=== PATIENT | female | born 1975 | race Caucasian/White ===

== ENCOUNTER 2017-11-04 19:48 | Emergency (ER) | payer BC ==
[2017-11-04] MEDS ORDERED: DUONEB *Not for PRN Use IH ONE (20:39)
--- NOTE | 2017-11-04 20:45 | Emergency Department Report ---
ED Shortness of Breath HPI - General Chief Complaint: Dyspnea/Respdistress Stated Complaint: CHEST PAIN, ARIEL Time Seen by Provider: 11/04/17 20:31 Source: family Mode of arrival: Ambulatory Limitations: No Limitations - History of Present Illness Initial Comments: Patient is to have a sudden onset of shortness of breath yesterday. She also had right upper quadrant abdominal pain. She denies any chest pain. Denied abdominal pain had resolved currently. She suffers from seasonal allergies. She says she has a plan to get to about doing that tomorrow. MD Complaint: shortness of breath, cough -: Sudden Severity: moderate Pain Scale: 7 Consistency: now resolved Improves With: oxygen Worsens With: nothing Known History Of: other (seasonal allergies) Context: other Treatments Prior to Arrival: none - Related Data Home Oxygen Therapy: No Previous Rx's Medication Instructions Recorded Last Taken Type ALBUTEROL Inhaler [ProAir HFA 2 puff IH QID PRN #1 inhalation 11/05/17 Unknown Rx Inhaler] predniSONE [Deltasone] 40 mg PO QDAY #8 tab 11/05/17 Unknown Rx Allergies Allergy/AdvReac Type Severity Reaction Status Date / Time No Known Allergies Allergy Unverified 11/04/17 20:09 ED Review of Systems ROS: Stated complaint: CHEST PAIN, ARIEL Other details as noted in HPI Comment: All other systems reviewed and negative Constitutional: denies: chills, fever Eyes: denies: vision change ENT: denies: ear pain Respiratory: cough, orthopnea, shortness of breath Cardiovascular: denies: chest pain, palpitations Endocrine: no symptoms reported Gastrointestinal: abdominal pain (RUQ). denies: nausea, vomiting, diarrhea Genitourinary: denies: dysuria, hematuria Musculoskeletal: denies: back pain, joint swelling Skin: denies: rash, lesions Neurological: denies: headache, weakness, numbness, paresthesias, confusion Psychiatric: denies: anxiety, depression Hematological/Lymphatic: denies: easy bleeding, easy bruising ED Past Medical Hx - Past Medical History Previous Medical History?: No - Surgical History Past Surgical History?: No - Social History Smoking Status: Never Smoker Substance Use Type: None - Medications Home Medications: Home Medications Medication Instructions Recorded Confirmed Last Taken Type ALBUTEROL Inhaler [ProAir HFA 2 puff IH QID PRN #1 inhalation 11/05/17 Unknown Rx Inhaler] predniSONE [Deltasone] 40 mg PO QDAY #8 tab 11/05/17 Unknown Rx ED Physical Exam - General Limitations: No Limitations General appearance: alert, in no apparent distress, cachectic - Head Head exam: Present: atraumatic, normocephalic, normal inspection - Eye Eye exam: Present: normal appearance, PERRL, EOMI Pupils: Present: normal accommodation - ENT ENT exam: Present: normal exam, normal orophraynx, mucous membranes moist - Neck Neck exam: Present: normal inspection, full ROM. Absent: tenderness - Respiratory Respiratory exam: Present: respiratory distress, wheezes, rales, rhonchi - Cardiovascular Cardiovascular Exam: Absent: regular rate, normal rhythm, normal heart sounds - GI/Abdominal GI/Abdominal exam: Present: soft, normal bowel sounds. Absent: distended, tenderness, guarding, rebound - Extremities Exam Extremities exam: Present: normal inspection, full ROM, normal capillary refill. Absent: tenderness, pedal edema, joint swelling - Back Exam Back exam: Present: normal inspection, full ROM - Neurological Exam Neurological exam: Present: alert, oriented X3, CN II-XII intact - Psychiatric Psychiatric exam: Present: normal affect, normal mood - Skin Skin exam: Present: warm, dry, intact, normal color. Absent: rash ED Course Vital Signs 11/04/17 11/04/17 11/04/17 20:10 20:18 20:30 Temperature 98.8 F Pulse Rate 67 69 87 Pulse Rate [ Posterior Bilateral Throughout] Pulse Rate [ Posterior Right Middle Lobe] Respiratory 20 19 Rate Respiratory Rate [Posterior Bilateral Throughout] Respiratory Rate [Posterior Right Middle Lobe] Blood Pressure 142/81 133/78 O2 Sat by Pulse 93 96 Oximetry 11/04/17 11/04/17 11/04/17 20:40 20:45 21:00 Temperature Pulse Rate 75 79 Pulse Rate [ Posterior Bilateral Throughout] Pulse Rate [ Posterior Right Middle Lobe] Respiratory 22 25 H 22 Rate Respiratory Rate [Posterior Bilateral Throughout] Respiratory Rate [Posterior Right Middle Lobe] Blood Pressure 133/78 127/87 O2 Sat by Pulse 99 100 100 Oximetry 11/04/17 11/04/17 11/04/17 21:15 21:31 21:45 Temperature Pulse Rate 70 73 79 Pulse Rate [ Posterior Bilateral Throughout] Pulse Rate [ Posterior Right Middle Lobe] Respiratory 28 H 30 H 24 Rate Respiratory Rate [Posterior Bilateral Throughout] Respiratory Rate [Posterior Right Middle Lobe] Blood Pressure 127/87 127/87 127/87 O2 Sat by Pulse 100 99 100 Oximetry 11/04/17 11/04/17 11/04/17 22:01 22:15 22:30 Temperature Pulse Rate 76 81 74 Pulse Rate [ Posterior Bilateral Throughout] Pulse Rate [ Posterior Right Middle Lobe] Respiratory 28 H 25 H 33 H Rate Respiratory Rate [Posterior Bilateral Throughout] Respiratory Rate [Posterior Right Middle Lobe] Blood Pressure 127/87 127/87 127/87 O2 Sat by Pulse 99 97 Oximetry 11/04/17 11/04/17 11/04/17 22:45 22:49 22:58 Temperature Pulse Rate Pulse Rate [ 73 89 Posterior Bilateral Throughout] Pulse Rate [ Posterior Right Middle Lobe] Respiratory Rate Respiratory 22 18 Rate [Posterior Bilateral Throughout] Respiratory Rate [Posterior Right Middle Lobe] Blood Pressure 127/87 O2 Sat by Pulse 90 Oximetry 11/04/17 11/04/17 11/04/17 23:01 23:15 23:17 Temperature Pulse Rate Pulse Rate [ 70 Posterior Bilateral Throughout] Pulse Rate [ Posterior Right Middle Lobe] Respiratory Rate Respiratory 18 Rate [Posterior Bilateral Throughout] Respiratory Rate [Posterior Right Middle Lobe] Blood Pressure 127/87 127/87 O2 Sat by Pulse 98 98 Oximetry 11/04/17 11/04/17 11/05/17 23:29 23:31 00:56 Temperature Pulse Rate Pulse Rate [ 89 Posterior Bilateral Throughout] Pulse Rate [ 89 Posterior Right Middle Lobe] Respiratory Rate Respiratory 18 Rate [Posterior Bilateral Throughout] Respiratory 18 Rate [Posterior Right Middle Lobe] Blood Pressure 127/87 O2 Sat by Pulse 98 Oximetry 11/05/17 01:08 Temperature Pulse Rate Pulse Rate [ 111 H Posterior Bilateral Throughout] Pulse Rate [ Posterior Right Middle Lobe] Respiratory Rate Respiratory 21 Rate [Posterior Bilateral Throughout] Respiratory Rate [Posterior Right Middle Lobe] Blood Pressure O2 Sat by Pulse Oximetry - Reevaluation(s) Reevaluation #1: 11/05/17 02:01 On reevaluation, patient said she feels much better after receiving breathing treatment. She wants to go home. ED Medical Decision Making - Lab Data Result diagrams: 11/04/17 20:31 11/04/17 20:31 - EKG Data -: EKG Interpreted by [facility] EKG shows normal: sinus rhythm Rate: normal (76) - EKG Data When compared to previous EKG there are: previous EKG unavailable Interpretation: other (1mm ST depression in the inferior leads. No STEMI.) - Radiology Data Radiology results: report reviewed, image reviewed - Medical Decision Making Asthma exacerbation. Shortness of breath. Critical care attestation.: If time is entered above; I have spent that time in minutes in the direct care of this critically ill patient, excluding procedure time. ED Disposition Clinical Impression: Reactive airway disease without complication Qualifiers: Asthma severity: mild Asthma persistence: intermittent Qualified Code(s): J45.20 - Mild intermittent asthma, uncomplicated Disposition: TO HOME OR SELFCARE Is pt being admited?: No Does the pt Need Aspirin: Yes Condition: Stable Instructions: Reactive Airways Disease (ED) Additional Instructions: Follow up with your primary doctor tomorrow morning. Return to the ED if your condition worsens. Prescriptions: ALBUTEROL Inhaler [ProAir HFA Inhaler] 2 puff IH QID PRN #1 inhalation PRN Reason: Shortness Of Breath predniSONE [Deltasone] 40 mg PO QDAY #8 tab Referrals: PRIMARY CARE, [Primary Care Provider] - 3-5 Days Time of Disposition: 02:05
[2017-11-04] MEDS ORDERED: BABY ASPIRIN PO ONE (20:50)
[2017-11-04 20:57] LABS: Basophils # (Auto) 0.1 K/mm3 (0.0-0.1); Basophils % (Auto) 0.8 % (0.0-1.8); Eosinophils # (Auto) 0.6 K/mm3 (0.0-0.4); Eosinophils % (Auto) 9.1 % (0.0-4.3); Hematocrit 42.2 % (30.3-42.9); Hemoglobin 13.7 gm/dl (10.1-14.3); Lymphocytes # (Auto) 1.6 K/mm3 (1.2-5.4); Lymphocytes % (Auto) 21.9 % (13.4-35.0); Mean Corpuscular HGB Conc 32 % (30-34); Mean Corpuscular Hemoglobin 27 pg (28-32); Mean Corpuscular Volume 84 fl (79-97); Monocytes # (Auto) 0.4 K/mm3 (0.0-0.8); Monocytes % (Auto) 5.1 % (0.0-7.3); Platelet Count 260 K/mm3 (140-440); Red Blood Count 5.01 M/mm3 (3.65-5.03); Red Cell Distribution Width 15.1 % (13.2-15.2)
[2017-11-04 21:13] LABS: BUN/Creatinine Ratio 14; Blood Urea Nitrogen 7 mg/dL (7-17); Calcium 10.2 mg/dL (8.4-10.2); Hemolysis Index 2
[2017-11-04 21:34] LABS: INR 0.94 (0.87-1.13)
[2017-11-04 21:35] LABS: Partial Thromboplastin Time 30.9 Sec. (24.2-36.6)
[2017-11-04 21:41] LABS: Alanine Aminotransferase 11 units/L (7-56); Albumin 4.8 g/dL (3.9-5)
[2017-11-04 21:44] LABS: Bilirubin,Direct < 0.2 mg/dL (0-0.2)
[2017-11-04 21:47] LABS: Lipase 15 units/L (13-60)
[2017-11-04 22:12] LABS: Bilirubin,Urine NEG (Negative); Blood,Urine NEG (Negative); Color,Urine Straw (Yellow); Protein,Urine <15 mg/dL mg/dL (Negative); Urobilinogen,Urine < 2.0 mg/dL (<2.0); WBC,Urine < 1.0 /HPF (0.0-6.0)
[2017-11-04 22:18] LABS: HCG Qualitative,Urine Negative (Negative)
--- NOTE | 2017-11-04 23:02 | XRay Report ---
FINAL REPORT EXAM: XR CHEST ROUTINE 2V HISTORY: Shortness of breath TECHNIQUE: Frontal and lateral chest x-ray. PRIORS: None. FINDINGS: Cardiac and mediastinal silhouette within normal limits. Lungs are normally expanded, without significant vascular congestion. No focal consolidation, pleural effusion or apparent pneumothorax. Bony thorax grossly unremarkable. IMPRESSION: 1. No acute findings.
[2017-11-04] MEDS ORDERED: PROVENTIL IH ONE ×2 (23:10→23:33)
[2017-11-04 23:45] VITALS: BP 127/87
== END 2017-11-05 02:14 | disposition home or self-care (01) ==
LOC: ED 19:48 → EDBD 19:48 → ED 11-05 02:14
DX: J45.901 Unspecified asthma with (acute) exacerbation (principal)
CPT/HCPCS: 36415; 71046; 80048; 80074; 81001; 81025; 82550; 82803; 83690; 83880; 84484; 85025; 85379; 85610; 85730; 87040; 94640; 96374; 99285; J2930; 93005; 93010

== ENCOUNTER 2019-11-12 22:40 | Observation (INO) | payer BC ==
[2019-11-12 23:53] LABS: Basophils % (Auto) 0.3 % (0.0-1.8); Eosinophils # (Auto) 0.2 K/mm3 (0.0-0.4); Eosinophils % (Auto) 1.9 % (0.0-4.3); Hematocrit 42.2 % (30.3-42.9); Hemoglobin 13.8 gm/dl (10.1-14.3); Lymphocytes # (Auto) 1.4 K/mm3 (1.2-5.4); Lymphocytes % (Auto) 12.6 % (13.4-35.0); Mean Corpuscular HGB Conc 33 % (30-34); Mean Corpuscular Volume 83 fl (79-97); Monocytes # (Auto) 0.7 K/mm3 (0.0-0.8); Monocytes % (Auto) 6.3 % (0.0-7.3); Platelet Count 237 K/mm3 (140-440); Red Blood Count 5.11 M/mm3 (3.65-5.03); Red Cell Distribution Width 13.5 % (13.2-15.2)
[2019-11-13 00:12] LABS: BUN/Creatinine Ratio 13; Blood Urea Nitrogen 10 mg/dL (7-17); Calcium 9.6 mg/dL (8.4-10.2); Hemolysis Index 4
[2019-11-14 16:20] LABS: Free T4 (Free Thyroxine) 1.27 ng/dL (0.76-1.46)
[2019-11-15 16:37] VITALS: BP 110/71
== END 2019-11-15 19:51 | disposition home or self-care (01) ==
LOC: ED 22:40 → 4A 11-13 04:37 → INTOOBSV 11-13 04:37
PROVIDERS: ADMIT Internal Medicine; ATTEND Internal Medicine
DX: J45.902 Unspecified asthma with status asthmaticus (principal); J20.9 Acute bronchitis, unspecified; R09.02 Hypoxemia; R79.1 Abnormal coagulation profile; R00.1 Bradycardia, unspecified; Z79.52 Long term (current) use of systemic steroids; Z79.899 Other long term (current) drug therapy
CPT/HCPCS: 36415; 71045; 71275; 80048; 84439; 84443; 84484; 85025; 85379; 93005; 93970; 94640; 94644; 94760; 96365; 96367; 96372; 96375; 96376; 99291; G0378; J1644; J1650; J1956; J2920; J2930; J3475; J7030; Q9967